=== PATIENT | male | born 1950 | race Caucasian/White ===

== ENCOUNTER 2025-02-12 06:22 | Day surgery (SDC) | payer MEDICARE, SELFPAY | END 2025-02-12 13:45 | disposition home or self-care (01) | LOC: GI 06:22 | PROVIDERS: ATTENDING PHYSICIAN Internal Medicine | DX: Z12.11 Encounter for screening for malignant neoplasm of colon (principal); K57.30 Diverticulosis of large intestine without perforation or abscess without bleeding; D12.2 Benign neoplasm of ascending colon; D12.3 Benign neoplasm of transverse colon; K63.5 Polyp of colon | CPT/HCPCS: 45385; 45380; 88305 ==